=== PATIENT | female | born 1985 | race Caucasian/White ===

== ENCOUNTER 2017-01-06 23:34 | Emergency (ER) | payer BC ==
--- NOTE | 2017-01-07 02:26 | ER Document Report ---
ED General - General Chief Complaint: Chest Pain Stated Complaint: CHEST PRESSURE Time Seen by Provider: 01/07/17 02:23 Notes: Patient is a 31-year-old female who presents with complaint of as if her heart is beating funny. She says it has been ongoing for approximately 5 days. She denies having any pain with this. She denies feeling short of breath with it. She has never had this happen before. She says that she works out daily. She says when she works out she does not feel this the beats. She says the symptoms seem to come on when she is resting. She denies any history of heart disease. Her mother says there is a history of mitral valve prolapse in the family. Patient says she does not take any type of supplements. She does not use any drugs. She does not smoke. She does not take any medications. Denies any leg pain or leg swelling. She does have a history of previous pregnancies. Her last was 3 years ago. No history of cardiomyopathy. TRAVEL OUTSIDE OF THE [place] IN LAST 30 DAYS: No Past Medical History - Social History Smoking Status: Never Smoker Frequency of alcohol use: None Drug Abuse: None Family History: Reviewed & Not Pertinent Patient has suicidal ideation: No Patient has homicidal ideation: No Renal/ Medical History: Denies: Hx Peritoneal Dialysis Review of Systems - Review of Systems Notes: My Normal Review Basic REVIEW OF SYSTEMS: CONSTITUTIONAL : Denies fever, chills, or sweats. Denies recent illness. EENT: Denies eye, ear, throat, or mouth pain or symptoms. Denies nasal or sinus congestion. CARDIOVASCULAR: Denies chest pain. Is having palpitations. RESPIRATORY: Denies cough, cold, or chest congestion. Denies shortness of breath, difficulty breathing, or wheezing. GASTROINTESTINAL: Denies abdominal pain. Denies nausea, vomiting, or diarrhea. Denies constipation. Last BM: MUSCULOSKELETAL: Denies neck or back pain or joint pain or swelling. SKIN: Denies rash or skin lesions. NEUROLOGICAL: Denies altered mental status or loss of consciousness. Denies headache. Denies weakness or paralysis or loss of use of either side. Denies problems with gait or speech. Denies sensory or motor loss. ALL OTHER SYSTEMS REVIEWED AND NEGATIVE. Physical Exam - Vital signs Vitals: Temp Pulse Resp BP Pulse Ox 98.3 F 63 18 128/42 H 98 01/07/17 00:23 01/07/17 00:23 01/07/17 00:23 01/07/17 00:23 01/07/17 00:23 - Notes Notes: General Appearance: Well nourished, alert, cooperative, no acute distress, no obvious discomfort. Well-appearing. Vitals: reviewed, See vital signs table. Head: no swelling or tenderness to the head Eyes: PERRL, EOMI, Conjuctiva clear Mouth: No decreasd moisture Neck: Supple, no neck tenderness Lungs: No wheezing, No rales, No rhonci, No accessory muscle use, good air exchange bilaterally. Heart: Normal rate, Regular rythm, grade 2 systolic murmur, no rub Abdomen: Normal BS, soft, No rigidity, No abdominal tenderness, No guarding, no rebound, no abdominal masses, no organomegaly Extremities: strength 5/5 in all extremities, good pulses in all extremities, no swelling or tenderness in the extremities, no edema. Skin: warm, dry, appropriate color, no rash Neuro: speech clear, oriented x 3, normal affect, responds appropriately to questions. Course - Re-evaluation Re-evalutation: 01/07/17 06:37 Patient looks well. I feel the patient safe to be discharged home. I did do a bedside ultrasound of the patient's heart. She has no pericardial effusion. She has good ventricular contraction without obvious wall motion abnormalities. I informed the patient I want her to hold off from exercise or exertional activities until she is evaluated by cardiology. I will refer her to the heart [facility]. Informed her that she most likely will do an echocardiogram due to her PVCs and mild murmur. Her murmur is faint but she does not remember being told she has a murmur in the past and therefore I think is important to get echocardiogram performed. Enzymes were negative. I do not suspect coronary disease based on her being a very young healthy female. She has no risk factors for coronary disease. She may have some mitral valve abnormality being that this does run in the family. I informed the patient and her mother that she should have a low threshold to return to the ER if she starts having chest pain, difficulty breathing, or feels that her symptoms are worsening. Patient agrees with plan will be discharged home. Dictation of this chart was performed using voice recognition software; therefore, there may be some unintended grammatical errors. - Vital Signs Vital signs: Temp Pulse Resp BP Pulse Ox 98.1 F 61 16 103/50 L 100 01/07/17 04:22 01/07/17 04:22 01/07/17 04:22 01/07/17 04:22 01/07/17 04:22 - Laboratory Result Diagrams: 01/07/17 02:55 01/07/17 02:55 Laboratory results interpreted by me: 01/07/17 02:55 WBC 3.7 L Seg Neutrophils % 38.6 L Lymphocytes % 50.6 H Absolute Neutrophils 1.4 L - EKG Interpretation by Me Additional EKG results interpreted by me: 01/07/17 02:24 EKG is reviewed and interpreted by me. EKG shows sinus rhythm with rate of [address] segment elevation or depression of some biphasic T waves in multiple leads. She does have occasional PVCs. NV interval is prolonged. QRS duration and QTc intervals are within normal range. No old EKG available for comparison. Discharge - Discharge Clinical Impression: PVCs (premature ventricular contractions), Heart murmur Condition: Good Disposition: HOME, SELF-CARE Additional Instructions: You have occasional premature ventricular contractions. This is when the ventricle of your heart beats prematurely. You have a mild systolic heart murmur on exam. We did blood work looking at your electrolytes. Your electrolytes were normal. We also did testing to review your heart enzymes. They are also negative. At this time I am referring you to the heart center in [place]. This is a group of cardiologists in [place]. The number is under the name "Dr. Squires" on your discharge paperwork. Please do not exercise or do anything exertional until cleared by the central office mechanic. Please return to the ER immediately if you have any chest pain, any difficulty breathing, or feel that your symptoms are worsening. Forms: Return to Work Referrals: MARGOT SQUIRES MD [NO LOCAL MD] - Follow up in 3-5 days (Call office in the morning for a close follow up appointment.)
[2017-01-07 03:09] LABS: ABSOLUTE LYMPHOCYTES (AUTO) 1.9 10^3/uL (0.5-4.7); ABSOLUTE MONOCYTES (AUTO) 0.4 10^3/uL (0.1-1.4); ABSOLUTE NEUT (AUTO) 1.4 10^3/uL (1.7-8.2); BASOPHILS % (AUTO) 0.6 % (0-2); EOSINOPHILS % (AUTO) 0.4 % (0-6); HEMATOCRIT 36.7 % (36.0-47.0); HEMOGLOBIN 12.3 g/dL (12.0-15.5); HGB HCT DIFFERENCE 0.2; LYMPHOCYTES % (AUTO) 50.6 % (13-45); MEAN CORPUSCULAR HEMOGLOBIN 27.2 pg (27.0-33.4); MEAN CORPUSCULAR HGB CONC 33.4 g/dL (32.0-36.0); MEAN CORPUSCULAR VOLUME 81 fl (80-97); MONOCYTES % (AUTO) 9.8 % (3-13); RED BLOOD COUNT 4.51 10^6/uL (3.72-5.28); RED CELL DISTRIBUTION WIDTH 13.7 % (11.5-14.0); SEGMENTED NEUTROPHILS % (AUTO) 38.6 % (42-78); WHITE BLOOD COUNT 3.7 10^3/uL (4.0-10.5)
--- NOTE | 2017-01-07 03:20 | RADIOLOGY REPORT (SQ) ---
EXAM DESCRIPTION: CHEST SINGLE VIEW COMPLETED DATE/TIME: 01/07/2017 3:08 am REASON FOR STUDY: palpitations COMPARISON: None. EXAM PARAMETERS: NUMBER OF VIEWS: One view. TECHNIQUE: Single frontal radiographic view of the chest acquired. RADIATION DOSE: NA LIMITATIONS: None. FINDINGS: LUNGS AND PLEURA: No opacities, masses or pneumothorax. No pleural effusion. MEDIASTINUM AND HILAR STRUCTURES: No masses. Contour normal. HEART AND VASCULAR STRUCTURES: Heart normal in size. Normal vasculature. BONES: No acute findings. Mild scoliotic curvature. HARDWARE: None in the chest. OTHER: No other significant finding. IMPRESSION: NO ACUTE RADIOGRAPHIC FINDING IN THE CHEST. TECHNICAL DOCUMENTATION: JOB ID: [id number]
[2017-01-07 03:24] LABS: ALANINE AMINOTRANSFERASE 32 U/L (9-52); ALBUMIN 4.4 g/dL (3.5-5.0); ALKALINE PHOSPHATASE 61 U/L (38-126); ANION GAP 10 (5-19); ASPARTATE AMINO TRANSFERASE 28 U/L (14-36); BILIRUBIN,DIRECT 0.3 mg/dL (0.0-0.4); BILIRUBIN,TOTAL 0.4 mg/dL (0.2-1.3); BLOOD UREA NITROGEN 10 mg/dL (7-20); CALCIUM 9.9 mg/dL (8.4-10.2); CARBON DIOXIDE 23 mmol/L (22-30); CHLORIDE 107 mmol/L (98-107); CREATINE KINASE 50 U/L (30-135); CREATININE RESULT 0.62 mg/dL (0.52-1.25); GLUCOSE 89 mg/dL (75-110); MAGNESIUM 1.9 mg/dL (1.6-2.3); POTASSIUM 4.2 mmol/L (3.6-5.0); SODIUM 140.3 mmol/L (137-145); TOTAL PROTEIN 7.2 g/dL (6.3-8.2)
[2017-01-07 03:34] LABS: CREATINE KINASE MB 1.9 ng/mL (<4.55); TROPONIN I 0.022 ng/mL
[2017-01-07 04:24] VITALS: BP 103/50
--- NOTE | 2017-01-07 08:03 | EKG REPORT ---
SEVERITY:- ABNORMAL ECG - SINUS RHYTHM MULTIFORM VENTRICULAR PREMATURE COMPLEXES FIRST DEGREE AV BLOCK PROBABLE LEFT ATRIAL ABNORMALITY PROBABLE LEFT VENTRICULAR HYPERTROPHY ABNORMAL T, CONSIDER ISCHEMIA, ANTERIOR LEADS : Confirmed by: Parris Villanueva 07-Jan-2017 08:02:56
== END 2017-01-07 04:32 | disposition home or self-care (01) ==
LOC: ER 23:34
DX: I49.3 Ventricular premature depolarization (principal); R01.1 Cardiac murmur, unspecified; R07.9 Chest pain, unspecified
CPT/HCPCS: 36415; 71010; 80053; 82550; 82553; 83735; 84484; 85025; 93005; 93010; 99285